=== PATIENT | female | born 1995 | race Caucasian/White ===

== ENCOUNTER 2017-06-16 12:20 | Emergency (ER) | payer OTHER ==
[~2017-06-16] VITALS: Ht 157.5 cm; Wt 58.0 kg
[2017-06-16 12:30] VITALS: O2SAT 98
[2017-06-16 12:38] VITALS: TEMP 37.7; Ht 157.5 cm; Wt 58.0 kg
[2017-06-16] MEDS ORDERED: ONDANSETRON INJ 2 MG/ML 2 ML VIAL IV STA (12:49)
[2017-06-16] MEDS ORDERED: SODIUM CHLORIDE 0.9% 1000ML 1,000 ML IV ONE (12:49)
[2017-06-16] MEDS ORDERED: KETOROLAC TROMETHAMINE 30 MG/ML VIAL IV STA (12:49)
[2017-06-16] MEDS ORDERED: SODIUM CHLORIDE 0.9% 1000ML 1,000 ML IV STA (12:49)
[2017-06-16 13:37] LABS: BASO % 0.5 %; BASO ABS # 0.03 K/uL (0-0.2); COMPLETE YES; EOS % 0.5 %; HEMATOCRIT 38.6 % (37-47); IG% 0.2 %; MEAN CELL VOLUME 91.7 fL (80-100); MEAN CORPUSCULAR HEMOGLOBIN 31.8 pg (25-34); MEAN CORPUSCULAR HGB CONC 34.7 g/dl (32-36); MONO % 6.3 %; NEUT % 64.5 %; PLATELET COUNT 224 K/uL (130-400); RED BLOOD COUNT 4.21 M/uL (4.2-5.4); WHITE BLOOD COUNT 6.08 K/uL (4.8-10.8)
--- NOTE | 2017-06-16 13:41 | DIAGNOSTIC IMAGING REPORT ---
CT SCAN OF THE BRAIN WITHOUT IV CONTRAST CLINICAL HISTORY: Headache. COMPARISON STUDY: No priors. TECHNIQUE: Unenhanced axial CT scan of the brain is performed from the vertex to the skull base. A dose lowering technique was utilized adhering to the principles of ALARA. CT DOSE: 638.56 mGycm FINDINGS: Brain parenchyma: The brain parenchyma is normal in appearance. There is no hemorrhage, mass effect, or evidence of acute territorial ischemia by CT criteria. Hernandes-white matter is preserved. No extra-axial fluid collection is seen. Ventricles, sulci, cisterns: Normal in configuration. Intracranial vasculature: The visualized intracranial vasculature at the skull base is normal in appearance. Calvarium: Unremarkable. Sinuses and mastoids: The visualized paranasal sinuses are clear. The mastoid air cells are well pneumatized. Orbits: The bony orbits are grossly intact. IMPRESSION: No acute intracranial abnormality. Electronically signed by: Da Guevara M.D. 06/16/2017 1:40 PM Dictated Date/Time: 06/16/2017 1:38 PM
[2017-06-16 13:50] LABS: BUN/CREATININE RATIO 14.6 (10-20); CALCIUM 8.8 mg/dl (8.5-10.1); CREATININE 0.68 mg/dl (0.60-1.20); POTASSIUM 4.1 mmol/L (3.5-5.1)
[2017-06-16 14:10] LABS: PREG INTERNAL NEGATIVE QC NEG CLEAR BACKGROUND; PREG INTERNAL POSITIVE QC POS CONTROL LINE
[2017-06-16 14:35] VITALS: BP 100/61; PULSE 73; O2SAT 100
--- NOTE | 2017-06-16 14:41 | EMERGENCY ROOM VISIT NOTE ---
History Report prepared by Aisha: Ha Fontenot Under the Supervision of: Dr. Alexy Caro M.D. First contact with patient: 12:42 Chief Complaint: SYNCOPE (NEAR SYNCOPE) Stated Complaint: DIZZINESS/NAUSEA/SYNCOPE History of Present Illness The patient is a 21 year old female who presents to the Emergency Room with complaints of a syncopal episode occurring shortly prior to arrival. She has a history of frequent syncopal episodes and states that she passes out approximately twice a year. She has been seen by cardiology and neurology for her episodes. The patient states that she has had a headache for the past three days. She states that she woke up in the morning, went to go get some water, and passed out as she sat drinking the water. The patient states that she felt diaphoretic, nauseous, and short of breath before she passed out. She states that she vomited after waking up. The patient denies any chest pain, abdominal pain, black or bloody stool, or fevers. She denies any injury. She denies any chance of . The patient notes that she has been having problems with easily bruising over the past year. She also notes that she was evaluated for excessive gum bleeding recently. She denies chance of . The patient has a history of PCOS. Source of History: patient Onset: shortly prior to arrival Quality: other (syncope) Timing: other (episode) Associated Symptoms: + diaphoresis, + SOB, + nausea, + vomiting, No fevers, No chest pain, No abdominal pain, No melena, No hematochezia Review of Systems See HPI for pertinent positives & negatives. A total of 10 systems reviewed and were otherwise negative. Past Medical & Surgical Medical Problems: (1) PCOS (polycystic ovarian syndrome) (2) Syncope Old medical records were reviewed. Nurse's notes were reviewed and I agree with. Family History No pertinent family history stated. Social History Smoking Status: Never Smoker Drug Use: none Occupation Status: [employer] student Current/Historical Medications No Active Prescriptions or Reported Meds Allergies Coded Allergies: No Known Allergies (Unverified , 06/16/17) Physical Exam Vital Signs Date Time Temp Pulse Resp B/P (MAP) Pulse Ox O2 Delivery O2 Flow Rate FiO2 06/16/17 14:35 73 18 100/61 100 Room Air 06/16/17 13:44 79 18 98/55 100 Room Air 06/16/17 12:41 67 06/16/17 12:38 37.7 74 18 115/68 98 Room Air 06/16/17 12:30 98 Room Air Physical Exam General: Non-ill appearing young female in no acute distress. HEENT: Normal cephalic atraumatic. Pupils are equal round and reactive to light. Sclerae anicteric. Extraocular movements are intact. Oropharynx is pink with moist mucous membranes. No swelling of the mouth lips or tongue. Neck: Supple with a midline trachea. No meningeal signs or stiffness, no JVD or bruits. No Stridor. Negative Kernig and Brudzinski's sign. Chest: Clear to auscultation bilaterally. No wheezes or rhonchi. No increased work of breathing. Heart: regular rate and rhythm. Abdomen: Soft nontender, nondistended without rebound guarding or rigidity. Extremities: No cyanosis clubbing or edema. No calf tenderness or assymetry Spine/Back. Non tender to palpation. No CVA tenderness Skin: Good turgor without rashes. Neurologic exam: Cranial nerves two through 12 are intact. Motor and sensation are intact and symmetrical throughout. Medical Decision & Procedures ER Provider Diagnostic Interpretation: CT results as stated below per my review and radiologist interpretation: CT SCAN OF THE BRAIN WITHOUT IV CONTRAST FINDINGS: Brain parenchyma: The brain parenchyma is normal in appearance. There is no hemorrhage, mass effect, or evidence of acute territorial ischemia by CT criteria. Hernandes-white matter is preserved. No extra-axial fluid collection is seen. Ventricles, sulci, cisterns: Normal in configuration. Intracranial vasculature: The visualized intracranial vasculature at the skull base is normal in appearance. Calvarium: Unremarkable. Sinuses and mastoids: The visualized paranasal sinuses are clear. The mastoid air cells are well pneumatized. Orbits: The bony orbits are grossly intact. IMPRESSION: No acute intracranial abnormality. Electronically signed by: Da Guevara M.D. 06/16/2017 1:40 PM Laboratory Results 06/16/17 13:05 Red Blood Count 4.21, Mean Corpuscular Volume 91.7, Mean Corpuscular Hemoglobin 31.8, Mean Corpuscular Hemoglobin Concent 34.7, Mean Platelet Volume 11.0, Neutrophils (%) (Auto) 64.5, Lymphocytes (%) (Auto) 28.0, Monocytes (%) (Auto) 6.3, Eosinophils (%) (Auto) 0.5, Basophils (%) (Auto) 0.5, Neutrophils # (Auto) 3.93, Lymphocytes # (Auto) 1.70, Monocytes # (Auto) 0.38, Eosinophils # (Auto) 0.03, Basophils # (Auto) 0.03 06/16/17 13:05 Test 06/16/17 13:05 06/16/17 13:12 White Blood Count 6.08 K/uL (4.8-10.8) Red Blood Count 4.21 M/uL (4.2-5.4) Hemoglobin 13.4 g/dL (12.0-16.0) Hematocrit 38.6 % (37-47) Mean Corpuscular Volume 91.7 fL (80-100) Mean Corpuscular Hemoglobin 31.8 pg (25-34) Mean Corpuscular Hemoglobin Concent 34.7 g/dl (32-36) Platelet Count 224 K/uL (130-400) Mean Platelet Volume 11.0 fL (7.4-10.4) Neutrophils (%) (Auto) 64.5 % Lymphocytes (%) (Auto) 28.0 % Monocytes (%) (Auto) 6.3 % Eosinophils (%) (Auto) 0.5 % Basophils (%) (Auto) 0.5 % Neutrophils # (Auto) 3.93 K/uL (1.4-6.5) Lymphocytes # (Auto) 1.70 K/uL (1.2-3.4) Monocytes # (Auto) 0.38 K/uL (0.11-0.59) Eosinophils # (Auto) 0.03 K/uL (0-0.5) Basophils # (Auto) 0.03 K/uL (0-0.2) RDW Standard Deviation 43.7 fL (36.4-46.3) RDW Coefficient of Variation 13.1 % (11.5-14.5) Immature Granulocyte % (Auto) 0.2 % Immature Granulocyte # (Auto) 0.01 K/uL (0.00-0.02) Anion Gap 5.0 mmol/L (3-11) Est Creatinine Clear Calc Drug Dose 103.5 ml/min Estimated GFR () 144.9 Estimated GFR (Non- 125.0 BUN/Creatinine Ratio 14.6 (10-20) Calcium Level 8.8 mg/dl (8.5-10.1) Total Bilirubin 0.4 mg/dl (0.2-1) Direct Bilirubin 0.1 mg/dl (0-0.2) Aspartate Amino Transf (AST/SGOT) 13 U/L (15-37) Alanine Aminotransferase (ALT/SGPT) 17 U/L (12-78) Alkaline Phosphatase 55 U/L (45-117) Total Protein 7.5 gm/dl (6.4-8.2) Albumin 4.2 gm/dl (3.4-5.0) Lipase 96 U/L (73-393) Human Chorionic Gonadotropin, Qual NEG (NEG) Bedside Troponin I < 0.030 ng/ml (0-0.045) Laboratory studies as stated above per my review. Medications Administered Medications (Trade) Dose Ordered Sig/Aly Route Start Time Stop Time Status Last Admin Dose Admin Sodium Chloride 1,000 ml @ 999 mls/hr Q1H1M STAT IV 06/16/17 12:49 06/16/17 13:49 DC 06/16/17 12:45 999 MLS/HR Sodium Chloride 1,000 ml @ 200 mls/hr Q5H ONCE IV 06/16/17 12:49 06/16/17 14:49 DC 06/16/17 13:54 200 MLS/HR Ondansetron HCl (Zofran Inj) 4 mg NOW STAT IV 06/16/17 12:49 06/16/17 12:51 DC 06/16/17 13:17 4 MG Ketorolac Tromethamine (Toradol Inj) 30 mg NOW STAT IV 06/16/17 12:49 06/16/17 12:51 DC 06/16/17 13:17 30 MG ECG Indication: syncope Rate (beats per minute): 83 Rhythm: normal sinus Findings: no acute ischemic change, no ectopy, other (RAD. Non-specific ST and T wave abnormality.) Comparison ECG Date: no prior available ED Course 1243: Past medical records reviewed. The patient was evaluated in room A2, and a complete history and physical examination were performed. 1249: Ordered Toradol Inj 30 mg IV, Zofran Inj 4 mg IV, Sodium Chloride 1000 ml @ 200 mls/hr IV, Sodium Chloride 1000 ml @ 999 mls/hr IV. 1416: Upon reevaluation, the patient is resting comfortably. I discussed the results and treatment plan with her. She verbalized agreement of the treatment plan. The patient was discharged home. Medical Decision Differentials include, but are not limited to; vasovagal episode, concussion, intracranial process, infection and electrolyte or metabolic abnormality. This patient comes in as described above. She was placed in room A2. She had a syncopal episode. It definitely sounds like a vasovagal spell as she had symptoms before hand, she got nauseated was seeing spots and passed out. She's had multiple syncopal episodes in the past . She's had a headache for last couple days and it is not been severe.and She has a normal neurologic exam . she has had no fever clinically she looks well and is non-ill and she has nothing to suggest meningitis or encephalitis. IV access established and she was hydrated IV normal saline .she was given Toradol 30 .g IV and Zofran 4 .g IV , she felt much better and looks well. She has no white count or fever to suggest infection . she has no acute electrolyte or metabolic abnormalities. He is not . CAT scan of her head was unremarkable. Clinically she has nothing to suggest aneurysm. She feels better and would like to go home. She will be discharged home. She should drink plenty of fluids and follow up with the student clinic for recheck. Medication Reconcilliation Current Medication List: was personally reviewed by me Blood Pressure Screening Patient's blood pressure: Normal blood pressure Blood pressure disposition: Did not require urgent referral Impression Primary Impression: Vasovagal episode Additional Impression: Headache Scribe Attestation The scribe's documentation has been prepared under my direction and personally reviewed by me in its entirety. I confirm that the note above accurately reflects all work, treatment, procedures, and medical decision making performed by me. Departure Information Dispostion Home / Self-Care Prescriptions No Active Prescriptions or Reported Meds Forms HOME CARE DOCUMENTATION FORM, IMPORTANT VISIT INFORMATION Patient Instructions My [facility] Additional Instructions Rest. Drink plenty of fluids. Return if: Increasing pain, worsening of symptoms, fever or chills, recurrence of symptoms, any new problems or concerns Follow-up with the [facility] tomorrow or Tuesday for recheck or return here at any point if symptoms worsen If needed, Use ibuprofen 400 mg every 6 hours, take with food Problem Qualifiers
== END 2017-06-16 14:38 | disposition home or self-care (01) ==
LOC: EDBD 12:20 → C.EDA 12:21
DX: R55 Syncope and collapse (principal); R51 Headache; E28.2 Polycystic ovarian syndrome